=== PATIENT | female | born 1970 | race Caucasian/White ===

== ENCOUNTER → 2020-05-05 | Outpatient (CLI) | payer OTHER ==
--- NOTE | 2020-05-05 15:54 | RAD ---
Transabdominal pelvic ultrasound INDICATION: Pelvic mass. COMPARISON: Noncontrast abdomen and pelvis CT of 03/31/2020 TECHNIQUE: Grayscale and color ultrasound of the pelvis was performed using the distended urinary bladder as an acoustic window. FINDINGS: The uterus measures 9.5 x 5.2 x 6.6 cm. The endometrium measures 1.4 cm. The right ovary measures 2.2 x 2.0 x 1.4 cm. Normal blood flow shown on color spectral Doppler imaging. The left ovary measures 2.3 x 2.3 x 1.2 cm. Normal blood flow in the left ovary was difficult to demonstrate. Three fibroids are identified. The first in the left uterine body measures 3.1 x 3.8 x 2.5 cm. The second in the right uterine body measures 2.0 x 2.6 x 2.7 cm. The third is a pedunculated lesion from the right fundal serosa, measuring 3.3 x 2.7 x 2.2 cm. IMPRESSION: Myomatous uterus as described with no discrete pelvic mass otherwise noted. Electronically signed by: Joanna Lazo MD (05/05/2020 3:51 PM) [id number]
== END | disposition home or self-care (01) ==
LOC: US 09:54
PROVIDERS: ATTEND Nurse Practitioner Adult Health
DX: D25.9 Leiomyoma of uterus, unspecified (principal)
CPT/HCPCS: 76856